=== PATIENT | male | born 1950 | race Caucasian/White ===

== ENCOUNTER 2020-04-07 00:36 | Emergency (ER) | payer OTHER ==
[~2020-04-07] VITALS: Ht 182.9 cm; Wt 108.9 kg
[2020-04-07] MEDS ORDERED: LAMICTAL150 MG PO (00:52)
[2020-04-07] MEDS ORDERED: TRAZODONE HCL50 MG (00:52)
[2020-04-07] MEDS ORDERED: WARFARIN SODIUM4 MG PO (00:52)
[2020-04-07] MEDS ORDERED: LIPITOR20 MG PO (00:53)
[2020-04-07] MEDS ORDERED: METOPROLOL SUCC50 MG PO (00:55)
[2020-04-07] MEDS ORDERED: VERAPAMIL ER240 MG PO (00:55)
[2020-04-07] MEDS ORDERED: EFFEXOR XR150 MG PO (00:55)
== END 2020-04-07 02:03 | disposition home or self-care (01) ==
LOC: ED 00:36
PROC: 093K7ZZ Control Bleeding in Nasal Mucosa and Soft Tissue, Via Natural or Artificial Opening (ICD-10-PCS; principal; 2020-04-07)
DX: R04.0 Epistaxis (principal); I48.91 Unspecified atrial fibrillation; E78.5 Hyperlipidemia, unspecified; Z79.899 Other long term (current) drug therapy; Z79.01 Long term (current) use of anticoagulants
CPT/HCPCS: 30903; 80053; 85025; 85610; 85730; 99283-25